=== PATIENT | female | born 1935 | race Caucasian/White ===

== ENCOUNTER 2016-12-06 11:59 | Emergency (ER) | payer MEDICARE ==
[~2016-12-06] VITALS: Ht 167.6 cm; Wt 56.7 kg
[2016-12-06 12:14] VITALS: BP 130/76
[2016-12-06] MEDS ORDERED: TRIA15OI TP (13:09)
[2016-12-06] MEDS ORDERED: CETI10TA22 PO (13:09)
--- NOTE | 2016-12-06 13:10 | PHYS DOC ---
Past Medical History Past Medical History: COPD, GERD, Hypertension, OR Past Surgical History: Hip Replacement, Pacemaker Alcohol Use: Heavy Additional Information: 3-4 beers daily, 2-3 glasses wine daily Drug Use: None Adult General Chief Complaint Chief Complaint: [facility] HPI Patient is a 81 year old medical history of COPD and hypertension who presents today with a rash pruritic in nature that his had for 3 years. Patient states her own PCP on it keeps him ellen and it's not helping. Patient denies any fever. Patient's also complaining of right ear pain and sore throat for 3 weeks. Denies any coughing or congestion. Review of Systems Review of Systems Constitutional: Denies fever or chills [] Eyes: Denies change in visual acuity, redness, or eye pain [] HENT: Right ear pain and sore throat [] Respiratory: Denies cough or shortness of breath [] Cardiovascular: No additional information not addressed in HPI [] GI: Denies abdominal pain, nausea, vomiting, bloody stools or diarrhea [] : Denies dysuria or hematuria [] Musculoskeletal: Denies back pain or joint pain [] Integument: rash Neurologic: Denies headache, focal weakness or sensory changes [] Endocrine: Denies polyuria or polydipsia [] Allergies Allergies Allergies Coded Allergies Type Severity Reaction Last Updated Verified Penicillins Allergy Intermediate rash 12/06/16 Yes Physical Exam Physical Exam Constitutional: Well developed, well nourished, no acute distress, non-toxic appearance. [] HENT: Normocephalic, atraumatic, bilateral external ears normal, oropharynx moist, no oral exudates, nose normal. [] Bilateral ears are normal. Posterior pharynx is normal. Eyes: PERRLA, EOMI, conjunctiva normal, no discharge. [] Neck: Normal range of motion, no tenderness, supple, no stridor. [] Cardiovascular:Heart rate regular rhythm, no murmur [] Lungs & Thorax: Bilateral breath sounds clear to auscultation [] Abdomen: Bowel sounds normal, soft, no tenderness, no masses, no pulsatile masses. [] Skin: Scattered areas of excoriation from itching throughout the skin. No drainage. Back: No tenderness, no CVA tenderness. [] Extremities: No tenderness, no cyanosis, no clubbing, ROM intact, no edema. [] Neurologic: Alert and oriented X 3, normal motor function, normal sensory function, no focal deficits noted. [] Psychologic: Affect normal, judgement normal, mood normal. [] Current Patient Data Vital Signs Vital Signs Date Time Temp Pulse Resp B/P (MAP) Pulse Ox O2 Delivery O2 Flow Rate FiO2 12/06/16 12:14 97.7 83 20 130/76 (94) 96 Room Air 97.7 EKG EKG [] Radiology/Procedures Radiology/Procedures [] Course & Med Decision Making Course & Med Decision Making Pertinent Labs and Imaging studies reviewed. (See chart for details) Patient is in the ED with the rashes had for 3 years. He is also complaining of a sore throat and right ear pain. Negative rapid strep. Discharged triamcinolone cream and Zyrtec. Follow-up with PCP in one week. Dragon Disclaimer Dragon Disclaimer This electronic medical record was generated, in whole or in part, using a voice recognition dictation system. Departure Departure Impression: Primary Impression: Contact dermatitis Additional Impressions: Acute viral pharyngitis Otalgia of right ear Disposition: HOME, SELF-CARE Condition: STABLE Referrals: AMRITA SOUSA (PCP) Follow-up with your doctor in one week Patient Instructions: Contact Dermatitis, [id number], Otalgia-Brief, Viral Pharyngitis Additional Instructions: You were seen for a rash for 3 years. Take Zyrtec or Claritin as needed for the rash. Follow-up with your own doctor in one week. Scripts Triamcinolone Acetonide (TRIAMCINOLONE ACETONIDE 0.1% OINT) 15 Gm Oint...g. 1 ONEL TP BID for WOUND CARE, #1 TUBE MIX WITH EUCERIN DIRECTED BY PHYSICIAN Prov: LEODAN JANG APRN 12/06/16 Cetirizine Hcl (ZYRTEC) 10 Mg Tablet 1 TAB PO DAILY, #30 TAB 2 Refills Prov: LEODAN JANG APRN 12/06/16 Problem Qualifiers Primary Impression: Contact dermatitis Contact dermatitis type: unspecified Contact dermatitis trigger: unspecified trigger Qualified Codes: L25.9 - Unspecified contact dermatitis, unspecified cause LEODAN JANG APRN December 06, 2016 13:10
[2016-12-07 10:17] LABS: NEGATIVE OBC STREP NEG; POSITIVE OBC STREP POS
== END 2016-12-06 13:18 | disposition home or self-care (01) ==
LOC: ER 11:59
DX: L25.9 Unspecified contact dermatitis, unspecified cause (principal); J02.8 Acute pharyngitis due to other specified organisms; B97.89 Other viral agents as the cause of diseases classified elsewhere; H92.01 Otalgia, right ear; J44.9 Chronic obstructive pulmonary disease, unspecified; I10 Essential (primary) hypertension; K21.9 Gastro-esophageal reflux disease without esophagitis; I25.2 Old myocardial infarction; F10.10 Alcohol abuse, uncomplicated; Z96.89 Presence of other specified functional implants; Z88.0 Allergy status to penicillin
CPT/HCPCS: 87070; 87880; 99284